=== PATIENT | male | born 1940 | race Caucasian/White ===

== ENCOUNTER → 2025-03-31 11:11 | Outpatient (REF) | payer OTHER, SELFPAY | LOC: RCS 11:11 | PROVIDERS: ATTENDING PHYSICIAN Nuclear Medicine Nuclear Cardiology; FAMILY PHYSICIAN Student in an Organized Health Care Education/Training Program | DX: I08.0 Rheumatic disorders of both mitral and aortic valves (principal); R00.1 Bradycardia, unspecified; I10 Essential (primary) hypertension; R94.31 Abnormal electrocardiogram [ECG] [EKG] | CPT/HCPCS: 93306 ==